=== PATIENT | female | born 1995 | race Caucasian/White ===

== ENCOUNTER 2018-09-01 00:09 | Emergency (ER) | payer OTHER ==
[2018-09-01] MEDS ORDERED: Dexamethasone 4 mg/ml Vial ONE (01:17)
[2018-09-01] MEDS ORDERED: Acetaminophen 500 MG TAB ONE (01:17)
[2018-09-01] MEDS ORDERED: Dexamethasone 4 MG TAB ONE (01:18)
== END 2018-09-01 01:54 | disposition home or self-care (01) ==
LOC: ERS 00:09
DX: O99.89 Other specified diseases and conditions complicating pregnancy, childbirth and the puerperium (principal); M54.31 Sciatica, right side; Z3A.27 27 weeks gestation of pregnancy
CPT/HCPCS: 99283; J1100; J8540

== ENCOUNTER 2018-09-13 21:05 | Emergency (ER) | payer OTHER | END 2018-09-13 22:42 | disposition home or self-care (01) | LOC: ERS 21:05 | DX: O99.513 Diseases of the respiratory system complicating pregnancy, third trimester (principal); J11.1 Influenza due to unidentified influenza virus with other respiratory manifestations; O99.343 Other mental disorders complicating pregnancy, third trimester; F32.9 Major depressive disorder, single episode, unspecified; Z79.899 Other long term (current) drug therapy; Z3A.29 29 weeks gestation of pregnancy | CPT/HCPCS: 99283 ==

== ENCOUNTER 2018-10-12 10:00 | Day surgery (SDC) | payer OTHER ==
[2018-10-12 11:06] VITALS: BP 113/61; TEMP 98.4; BMI 21.6
--- NOTE | 2018-10-12 11:30 | PDOC.LDHP ---
Labor and Delivery H&P Chief complaint: other (N/V at 33 weeks) HPI: Time: 112 Location: Triage CC: N/V Patient of Dr Blankenship HPI: 20 yo G1 at 33 weeks 5 days here for N/V. Some loose stools, no fevers, no blood in stool or emesis noted. Good FM. no sick contacts and no trauma. No chills, no fevers. Review of Systems: Complete ROS performed and as per HPI Current gestational age (weeks): 33 (5 days) Due date: 11/25/18 Dating criteria: last menstrual period Grav: 1 Para: 0 Current complications: none Abnormal US findings: No Past Medical History: None Current medications: pre- vitamins Previous surgical history: other (lymph node removal as child...benign) Allergies/Adverse Reactions: Allergies Allergy/AdvReac Type Severity Reaction Status Date / Time No Known Allergies Allergy Verified 10/12/18 10:50 Social history: none - Physical Exam Vital signs reviewed and normal: yes (113/61 98.4 16) General: NAD Heart: RRR Lungs: CTAB Abdomen: NTTP Extremeties: no edema FHT: category 1 [place] contractions every: none - Plan Plan: observation in L&D (I have orderd: 1. NST 2. PO hydration 3. Zofran x 1 4. CMP now) -: Nausea and diarrhea at 33 weeks, 5 days. No evidence of PTL clinically. Afebrile. Prob mild gastroenteritis.
[2018-10-12] MEDS ORDERED: Ondansetron ODT 4 MG TAB PO SCH (12:00)
[2018-10-12 12:23] LABS: ALT (SGPT) 12 U/L (8-55); AST (SGOT) 21 U/L (5-34); Albumin 3.4 g/dL (3.5-5.0); Alkaline Phosphatase 141 U/L (40-150); Anion Gap 11 mmol/L (10-20); BUN (Urea Nitrogen) 4 mg/dL (7.0-18.7); Bilirubin, Total 0.3 mg/dL (0.2-1.2); Calc. Creatinine Clearance 164 mL/min (70-130); Calcium 9.3 mg/dL (7.8-10.44); Carbon Dioxide 24 mmol/L (22-29); Chloride 103 mmol/L (98-107); Estimated GFR-MDRD Greater than 90; Globulin 3.6 g/dL (2.4-3.5); Glucose 72 mg/dL (70-105); Sodium 134 mmol/L (136-145)
== END 2018-10-12 13:28 | disposition home or self-care (01) ==
LOC: ERS 10:00 → L&D/OP 10:00 → EDSTATUS 10:14 → L&D/OP 13:28
PROVIDERS: ATTEND Family Medicine
DX: O21.2 Late vomiting of pregnancy (principal); O99.89 Other specified diseases and conditions complicating pregnancy, childbirth and the puerperium; R19.7 Diarrhea, unspecified; Z3A.33 33 weeks gestation of pregnancy; Z79.899 Other long term (current) drug therapy
CPT/HCPCS: 36415; 80053; 99283; Q0162

== ENCOUNTER 2018-10-25 14:26 | Outpatient (CLI) | payer OTHER ==
--- NOTE | 2018-10-25 15:40 | ULT ---
BIOPHYSICAL PROFILE: INDICATIONS: Poor intrauterine growth. Umbilical artery Doppler studies were performed. UMBILICAL ARTERY AT PLACENTA: Systolic/diastolic ratio 2.85 MID UMBILICAL ARTERY: Systolic/diastolic ratio 2.23. UMBILICAL ARTERY AT FETUS: Systolic/diastolic ratio 2.67. TONE SCORE: 2 BREATHING SCORE: 2 MOVEMENT SCORE: 2 AMNIOTIC FLUID SCORE: 2 TOTAL SCORE: 8/8 POSITIONING: Vertex. PLACENTA: Anterior. PEGGY: 9.3 cm. HEART RATE: 130 beats per minute. POS: [facility]
== END 2018-10-25 14:27 | disposition home or self-care (01) ==
LOC: ULT 14:26
PROVIDERS: ATTEND Family Medicine
DX: O36.5990 Maternal care for other known or suspected poor fetal growth, unspecified trimester, not applicable or unspecified (principal)
CPT/HCPCS: 76700; 76819

== ENCOUNTER 2018-10-31 11:19 | Day surgery (SDC) | payer OTHER ==
[2018-10-31 11:41] VITALS: BMI 21.4
--- NOTE | 2018-10-31 14:03 | ULT ---
EXAM: OB ultrasound Umbilical artery ultrasound Biophysical profile COMPARISON: None HISTORY: Size discrepancy compared to dates. TECHNIQUE: Multiplanar grayscale and color Doppler images were obtained in a transabdominal ult rasound. Spectral analysis of the Doppler waveforms of the umbilical artery were performed. A biophysical profile was also performed. FINDINGS: There is a single live intrauterine with heart rate of 143 bpm. A limited s urvey was performed which is unremarkable. Estimated weight is 2208 g. Average age of the fetus based off today's examination is 33 weeks 5 days. BPD 8.51 cm -- 34 weeks 2 days HC 30.88 cm -- 34 weeks 3 days AC 28.37 cm -- 32 weeks 3 days FL 6.77 cm -- 34 weeks 6 days The placenta is anterior in location without focal abnormality. PEGGY is 14 cm which is normal. There is no evidence of placenta previa. The waveforms of the umbilical artery are normal with persistent diastolic flow. Peak systolic to grazyna stolic ratio is 2.25. A biophysical profile was performed. The fetus scored 8 out of 8, which is normal. IMPRESSION: 1. Single live intrauterine with estimated age of 33 weeks 5 days. 2. Unremarkable umbilical artery ultrasound 3. Normal biophysical profile
--- NOTE | 2018-10-31 14:04 | PDOC.LDHP ---
Labor and Delivery H&P Chief complaint: other (Sent from clinic) HPI: 23 y/o G1 at 36w3d, patient of Dr. Blankenship, presents from clinic for lagging growth and nonreactive NST. Denies any complaints, no VB, LOF, ctx, or decreased FM. ROS neg for HEENT, cv, pulm, gi, gu, neuro, psych, skin, musculoskeletal or constitutional symptoms other than mentioned above. OB History Details: First baby Current complications: IUGR Past Medical History: None Current medications: pre-hamzah vitamins Previous surgical history: none Allergies/Adverse Reactions: Allergies Allergy/AdvReac Type Severity Reaction Status Date / Time No Known Allergies Allergy Verified 10/31/18 11:41 Social history: none - Physical Exam Vital signs reviewed and normal: yes Abnormal vital signs: periods of tachycardia while supine for ultrasound General: NAD, resting Heart: RRR Lungs: nonlabored breathing Abdomen: gravid Extremeties: no edema FHT: category 1 (135, mod variability, + accels, no decels) [place] contractions every: irregular - Assessment 23 y/o G1 at 36w3d with reassuring status. BPP 10/10, EFW at 3rd percentile, umbilical artery dopplers normal. - Plan -: Discussed with Dr. Blankenship. D/c home to follow up in clinic on Monday.
== END 2018-10-31 14:15 | disposition home health service (06) ==
LOC: L&D/OP 11:19
PROVIDERS: ATTEND Family Medicine
DX: O36.8330 Maternal care for abnormalities of the fetal heart rate or rhythm, third trimester, not applicable or unspecified (principal); Z3A.36 36 weeks gestation of pregnancy
CPT/HCPCS: 59025; 76700; 76815; 76819; 99282

== ENCOUNTER 2018-11-08 09:42 | Outpatient (CLI) | payer OTHER ==
--- NOTE | 2018-11-08 10:56 | ULT ---
Limited obstetrical ultrasound Biophysical profile by ultrasound Umbilical artery spectral Doppler evaluation INDICATION: Evaluate growth and PEGGY TECHNIQUE: Grayscale, M-mode Doppler, color Doppler and spectral Doppler images were obtained. Biophy sical profile was submitted by the lawn care technician. COMPARISON: Prior Limited obstetrical ultrasound dated October 31, 2018 FINDINGS: Number of gestations: Single. Presentation: Cephalic. Placental location: Anterior Previa: No evidence for previa. Cervical length: Not well seen PEGGY: 8.1 cm. heart rate: 136 bpm. Biparietal diameter: 8.33cm, 33 weeks 4 days, 1st percentile. Head circumference: 30.47 cm, 34 weeks 2 days, not calculated Abdominal circumference: 27.12 cm, 31 weeks 1 day, Not calculated. Femoral length: 6.80cm, 35 weeks 0 days, 4th percentile Estimated weight: 2066 g g +/- 306g 4 lbs. 9 oz. +/- 11 ounces, less than 1-4% LIMITED SURVEY: head: Normal appearing. Cerebellum: Not assessed. Cisterna magna: Not assessed Lateral ventricles: Not assessed 4 chamber heart: Normal appearing.. Stomach: Normal appearing. Kidneys: Normal appearing. Cord insertion: Normal appearing. Bladder: Normal appearing. Spine: Not assessed Lips and nose: Not assessed Extremities: Not assessed Three-vessel CORD: Normal appearing. Biophysical profile: tone: 2 out of 2. breathin out of 2 movements: 2 out of 2 Amniotic fluid level: 2 out of 2 Umbilical artery spectral Doppler imaging: There is persistent diastolic flow. The systolic diastolic ratio at the placenta was 2.53, at mid cord 2.62 and at the insertion 2.35. The average gestational age by ultrasound is 33 weeks 4 dayswith estimated due date of December 23, 2018. The estimated dates by clinical data is 37 weeks 4 dayswith estimated due date of November 25, 2018. IMPRESSION: 1. Single live intrauterine gestation with size and dates as above. Low gestational weight for age. 2. Biophysical profile of 8 out of 8. 3. Umbilical artery spectral Doppler evaluation within normal limits.
== END 2018-11-08 09:43 | disposition home or self-care (01) ==
LOC: ULT 09:42
PROVIDERS: ATTEND Family Medicine
DX: O36.5930 Maternal care for other known or suspected poor fetal growth, third trimester, not applicable or unspecified (principal); Z3A.33 33 weeks gestation of pregnancy
CPT/HCPCS: 76700; 76815; 76819

== ENCOUNTER 2018-11-14 14:47 | Inpatient (IN) | payer OTHER ==
[2018-11-15] MEDS ORDERED: Methylergonovine 0.2 MG/ML VIAL IM PRN (06:17)
[2018-11-15] MEDS ORDERED: Carboprost 250 MCG/ML AMP IM PRN (06:17)
[2018-11-15] MEDS ORDERED: Ibuprofen 800 MG TAB PO PRN (06:17)
[2018-11-15] MEDS ORDERED: Promethazine HCl 25 MG/ML VIAL IM PRN ×2 (06:17→12:34)
[2018-11-15] MEDS ORDERED: Butorphanol Tartrate 1 MG/ML VIAL SLOW IVP PRN (06:17)
[2018-11-15] MEDS ORDERED: NS w/ Oxytocin 10 units 500 ML IV SCH ×2 (06:17)
[2018-11-15] MEDS ORDERED: HYDROcodone/Acetaminophen 5/325 mg Tablet PO PRN ×3 (06:17→17:15)
[2018-11-15] MEDS ORDERED: Lidocaine 1% (PF) 30 ML VIAL SC PRN (06:17)
[2018-11-15] MEDS ORDERED: Ondansetron PF 4 MG/2 ML Vial IVP PRN ×3 (06:17→17:15)
[2018-11-15] MEDS ORDERED: Diphenoxylate HCl/Atropine Tablet PO PRN (06:17)
[2018-11-15] MEDS ORDERED: Misoprostol 200 MCG TAB PR PRN (06:17)
[2018-11-15 06:35] VITALS: BMI 21.6
[2018-11-15] MEDS: Lactated Ringer's 1,000 ML IV SCH ×2 (06:55→12:20)
[2018-11-15 07:04] LABS: Hemoglobin 10.1 g/dL (12.0-16.0); Mean Corpuscular HGB CONC 31.7 g/dL (32.0-36.0); Mean Corpuscular Hemoglobin 26.4 pg (27.0-31.0); Mean Corpuscular Volume 83.4 fL (78.0-98.0); Mean Platelet Volume 8.3 fL (7.4-10.4); Platelet Count 231 thou/uL (130-400); RBC Distribution Width 13.3 % (11.5-14.5); Red Blood Cell (RBC) Count 3.83 mill/uL (4.20-5.40); White Blood Cell (WBC) Count 15.1 thou/uL (4.8-10.8)
[2018-11-15 07:43] LABS: Syphilis Antibody Nonreactive (Nonreactive); Syphilis Antibody Index 0.03 S/CO (<1.00 Non-Reactive)
[2018-11-15 07:44] LABS: HBSAg Index 0.25 S/CO (0-0.99); Hep B Surf Ag Non-Reactive S/CO (NonReactive)
[2018-11-15] MEDS ORDERED: Fentanyl 4 mcg/Bup 0.1% Cadd 100 ML ONE (10:18)
[2018-11-15] MEDS ORDERED: diphenhydrAMINE 50 MG/ML VIAL IVP PRN (12:34)
[2018-11-15] MEDS ORDERED: Lactated Ringer's 500 ML IV PRN (12:34)
[2018-11-15] MEDS ORDERED: ePHEDrine/0.9% NaCl/PF SYRINGE 50 mg/10 ml SLOW IVP PRN (12:34)
[2018-11-15] MEDS ORDERED: Acetaminophen 325 MG TAB PO PRN (12:34)
[2018-11-15] MEDS ORDERED: Naloxone HCl 0.4 mg/ml Vial IVP PRN ×2 (12:34)
[2018-11-15] MEDS ORDERED: Communication Order-Pharmacy FS SCH (12:45)
[2018-11-15] MEDS ORDERED: Fentanyl 4 mcg/Bupivacaine 0.1% Cassette 100 ML EPIDURAL SCH (12:45)
[2018-11-15] MEDS ORDERED: Benzocaine-Menthol 82.5 ML CAN TOP PRN (17:15)
[2018-11-15] MEDS ORDERED: diphenhydrAMINE 25 MG CAP PO PRN (17:15)
[2018-11-15] MEDS ORDERED: Milk Of Magnesia 30 ML UDCUP PO PRN (17:15)
[2018-11-15] MEDS ORDERED: Lanolin Ointment 7 GM TUBE TOP PRN (17:15)
[2018-11-15] MEDS ORDERED: NS / Oxytocin 40 units/1000ml 1,000 ML IV SCH (17:15)
[2018-11-15] MEDS ORDERED: Bisacodyl 10 MG SUPP PR PRN (17:15)
[2018-11-15] MEDS: Ferrous Sulfate 325 MG TAB PO SCH (17:44)
[2018-11-15] MEDS: Ibuprofen 800 MG TAB PO SCH (21:02)
[2018-11-15] MEDS: Docusate Calcium (SURFAK) 240 MG CAP PO SCH (21:02)
[2018-11-16] MEDS: Ibuprofen 800 MG TAB PO SCH ×3 (05:15→22:13)
[2018-11-16 06:34] LABS: Hemoglobin 8.9 g/dL (12.0-16.0); Mean Corpuscular HGB CONC 32.2 g/dL (32.0-36.0); Mean Corpuscular Hemoglobin 26.9 pg (27.0-31.0); Mean Corpuscular Volume 83.6 fL (78.0-98.0); Platelet Count 186 thou/uL (130-400); RBC Distribution Width 13.1 % (11.5-14.5); White Blood Cell (WBC) Count 15.1 thou/uL (4.8-10.8)
[2018-11-16] MEDS: Docusate Calcium (SURFAK) 240 MG CAP PO SCH ×2 (10:12→22:13)
[2018-11-16] MEDS: Prenatal Vitamin 1 TAB PO SCH (10:12)
[2018-11-16] MEDS: Ferrous Sulfate 325 MG TAB PO SCH ×2 (10:12→17:20)
[2018-11-17] MEDS: Ibuprofen 800 MG TAB PO SCH (07:15)
[2018-11-17 09:31] VITALS: BP 115/58; TEMP 98.5
[2018-11-17] MEDS: Docusate Calcium (SURFAK) 240 MG CAP PO SCH (10:11)
[2018-11-17] MEDS: Prenatal Vitamin 1 TAB PO SCH (10:12)
[2018-11-17] MEDS ORDERED: Adacel (T-DAP) 0.5 ML SYRINGE IM ONE (11:30)
[2018-11-17] MEDS: Ferrous Sulfate 325 MG TAB PO SCH (12:43)
== END 2018-11-17 12:35 | disposition home or self-care (01) | DRG 807 ==
LOC: L&D 11-15 05:59 → 3SW 11-15 17:00
PROVIDERS: ADMIT Family Medicine; ATTEND Family Medicine
PROC: 10907ZC Drainage of Amniotic Fluid, Therapeutic from Products of Conception, Via Natural or Artificial Opening (ICD-10-PCS; principal; 2018-11-15)
PROC: 10E0XZZ Delivery of Products of Conception, External Approach (ICD-10-PCS; 2018-11-15)
PROC: 3E033VJ Introduction of Other Hormone into Peripheral Vein, Percutaneous Approach (ICD-10-PCS; 2018-11-15)
DX: O36.5930 Maternal care for other known or suspected poor fetal growth, third trimester, not applicable or unspecified (principal); Z37.0 Single live birth; O69.81X0 Labor and delivery complicated by cord around neck, without compression, not applicable or unspecified; Z3A.38 38 weeks gestation of pregnancy
CPT/HCPCS: 36415; 51702; 85027; 86780; 86850; 86900; 86901; 87340; 90715; J2590; J7050

== ENCOUNTER 2019-12-03 22:01 | Emergency (ER) | payer BC, OTHER ==
[2019-12-04 12:57] LABS: SARS-CoV-2 MS2 Positive; SARS-CoV-2 N Gene Positive; SARS-CoV-2 S Gene Positive; SARS-CoV-2 orf1ab Positive
== END 2019-12-03 22:35 | disposition home or self-care (01) ==
LOC: ERS 22:01
DX: U07.1 COVID-19 (principal); J45.909 Unspecified asthma, uncomplicated; F32.9 Major depressive disorder, single episode, unspecified; F41.9 Anxiety disorder, unspecified
CPT/HCPCS: 87635; 99283; U0003

== ENCOUNTER 2019-12-18 15:44 | Emergency (ER) | payer BC, OTHER ==
[2019-12-20 16:00] LABS: SARS-CoV-2 MS2 Positive; SARS-CoV-2 N Gene Positive; SARS-CoV-2 S Gene Positive; SARS-CoV-2 orf1ab Positive
== END 2019-12-18 16:18 | disposition home or self-care (01) ==
LOC: ERS 15:44
DX: U07.1 COVID-19 (principal); J45.909 Unspecified asthma, uncomplicated; F41.9 Anxiety disorder, unspecified; F32.9 Major depressive disorder, single episode, unspecified
CPT/HCPCS: 87635; 99283; U0003

== ENCOUNTER 2023-04-04 17:18 | Emergency (ER) | payer BC, MEDICAID, SELFPAY ==
[2023-04-04] MEDS ORDERED: Ketorolac Tromethamine 30 MG/ML VIAL ONE (18:09)
[2023-04-04] MEDS ORDERED: Metoclopramide HCl 10 MG/2 ML VIAL ONE (18:09)
[2023-04-04] MEDS ORDERED: Dexamethasone 10 MG/ML VIAL ONE (18:09)
[2023-04-04 18:37] LABS: #Eosinphils 0.1 thou/uL (0.0-0.7); #Monocytes 0.6 thou/uL (0.11-0.59); #Neutrophils 8.4 thou/uL (1.40-6.50); %Basophils 0.3 % (0.0-1.0); %Eosinophils 0.9 % (0.0-10.0); %Lymphocytes 27.9 % (21.0-51.0); %Monocytes 4.9 % (0.0-10.0); %Neutrophils 65.7 % (42.0-75.0); Hematocrit 38.7 % (36.0-47.0); Hemoglobin 12.5 g/dL (12.0-16.0); Mean Corpuscular HGB CONC 32.3 g/dL (32.0-36.0); Mean Corpuscular Hemoglobin 26.6 pg (27.0-31.0); Mean Corpuscular Volume 82.3 fl (78.0-98.0); Mean Platelet Volume 9.4 fL (7.4-10.4); Platelet Count 258 10x3/uL (130-400); RBC Distribution Width 13.5 % (11.5-14.5); White Blood Cell (WBC) Count 12.7 10x3/uL (4.8-10.8)
[2023-04-04 18:46] LABS: BHCG - Serum Negative (NEGATIVE); Pregs Control Background? CLEAR/WHITE (CLR/WHITE); Pregs Control Bar Appear? YES (CONTROL BAR)
== END 2023-04-04 19:18 | disposition home or self-care (01) ==
LOC: ERS 17:18
DX: G43.909 Migraine, unspecified, not intractable, without status migrainosus (principal)
CPT/HCPCS: 70450; 84703; 85025; 96361; 96374; 96375; J1100; J1885; J2765